=== PATIENT | male | born 1950 ===

== ENCOUNTER 2016-11-25 00:01 | Emergency (ER) | payer OTHER ==
[~2016-11-25] VITALS: Ht 170.2 cm; Wt 79.8 kg
[2016-11-25 00:06] VITALS: BP 154/87
[2016-11-25] MEDS ORDERED: PROZAC20 MG ORAL (00:30)
[2016-11-25] MEDS ORDERED: ZYRTEC10 MG ORAL (00:30)
[2016-11-25] MEDS ORDERED: OMEGA-3100 M1 PO (00:30)
[2016-11-25] MEDS ORDERED: ADVAIR 100-501 EACH INH (00:30)
[2016-11-25] MEDS ORDERED: WARFARIN SODIUM4 MG ORAL (00:30)
[2016-11-25] MEDS ORDERED: PredniSONE 20mg tab ORAL ONE (00:30)
[2016-11-25] MEDS ORDERED: WARFARIN SODIUM3 MG ORAL (00:30)
[2016-11-25] MEDS ORDERED: LOSARTAN POTASS25 MG ORAL (00:30)
[2016-11-25] MEDS ORDERED: PREDNISONE20 MG ORAL (00:37)
--- NOTE | 2016-11-25 00:38 | Emergency Room Report ---
History of Present Illness General Chief Complaint: Flu Like Symptoms Source: Patient Present Illness [facility] This is a 66-year-old male with history hypertension. He presents with chief complaint is sore throat and throat swelling. Onset today. Took his inhaler without much relief. No fever or chills. No nausea no vomiting. No coughing. Allergies: Coded Allergies: VIDYA INHIBITORS (Verified Allergy, Unknown, 11/25/16) METOPROLOL (Verified Allergy, Unknown, 11/25/16) Patient History Past Medical History: see triage record, old chart reviewed, HTN Past Surgical History: other - Mechanical valve Pertinent Family History: none Social History: Denies: smoking Immunizations: other Reviewed Nursing Documentation: PMH: Agreed, PSxH: Agreed Nursing Documentation-PMH Hx Cardiac Problems: Yes - A FIB,MITRAL VALVE REPLACEMENT Hx Asthma: Yes Review of Systems Eye: Denies: blurred vision, eye pain ENT: Reports: throat swelling, Denies: ear pain, nose congestion Respiratory: Denies: cough, shortness of breath Cardiovascular: Denies: chest pain, palpitations Gastrointestinal: Denies: abdominal pain, diarrhea, nausea, vomiting Musculoskeletal: Denies: back pain, joint pain Skin: Denies: rash Neurological: Denies: headache, numbness Endocrine: Denies: increased thirst, increased urine Hematologic/Lymphatic: Denies: easy bruising All Other Systems: negative except mentioned in HPI Physical Exam Vital Signs Date Time Temp Pulse Resp B/P Pulse Ox O2 Delivery O2 Flow Rate FiO2 11/25/16 00:06 98.2 68 16 154/87 99 Room Air vitals with hypertension Sp02 EP Interpretation: reviewed, normal General Appearance: well appearing, no apparent distress, alert Head: normocephalic, atraumatic Eyes: bilateral eye EOMI, bilateral eye PERRL ENT: hearing grossly normal, uvula midline - Edematous, pharyngeal erythema Neck: full range of motion, supple, no meningismus, other - No stridor Respiratory: chest non-tender, lungs clear, normal breath sounds Cardiovascular #1: regular rate, rhythm, no murmur, other - Mechanical click Gastrointestinal: normal bowel sounds, non tender, no mass, no organomegaly, no bruit, non-distended Musculoskeletal: back normal, gait/station normal, normal range of motion Psychiatric: mood/affect normal Skin: warm/dry Medical Decision Making Diagnostic Impression: Primary Impression: Uvulitis ER Course Patient presents with cellulitis. Most likely viral in nature. He looks well. There is no evidence of angioedema. No evidence of stridor. Lungs are clear. We'll discharge home. Last Vital Signs Date Time Temp Pulse Resp B/P Pulse Ox O2 Delivery O2 Flow Rate FiO2 11/25/16 00:10 68 16 Room Air 11/25/16 00:06 98.2 154/87 99 Status: improved Disposition: HOME, SELF-CARE Condition: Stable Scripts Prednisone* (PREDNISONE*) 20 Mg Tablet 40 MG ORAL DAILY, #8 TAB Prov: YING ANDERSON M.D. 11/25/16 Additional Instructions: Followup with your Dr. in 7 days. Return if symptom worsen. YING ANDERSON M.D. Nov 25, 2016 00:38
[2016-11-25 00:41] VITALS: BP 137/69
== END 2016-11-25 00:45 | disposition home or self-care (01) ==
LOC: EDBD 00:01 → EMR 00:43
DX: K12.2 Cellulitis and abscess of mouth (principal); J45.909 Unspecified asthma, uncomplicated; Z95.2 Presence of prosthetic heart valve; I48.91 Unspecified atrial fibrillation
CPT/HCPCS: 82962; 99283